=== PATIENT | female | born 1970 | race Caucasian/White ===

== ENCOUNTER 2018-06-10 09:39 | Emergency (ER) | payer SELFPAY ==
[2018-06-10 09:49] VITALS: BP 136/87
[2018-06-10] MEDS ORDERED: KETOROLAC TROMETHAMINE 60 MG/2 ML SDV IM ONE (10:01)
[2018-06-10] MEDS ORDERED: HYDROCODONE/ACETAMINOPHEN 5-325 MG TABLET PO ONE (10:01)
--- NOTE | 2018-06-10 10:03 | ER Document Report ---
ED Neck/Back Problem - General Chief Complaint: Neck Injury Stated Complaint: NECK/SHOULDER PAIN Time Seen by Provider: 06/10/18 09:51 Mode of Arrival: Ambulatory Information source: Patient, Relative Notes: Patient is a 47-year-old female comes emergency room complaining of 3-day onset of right-sided neck pain radiating down to the right upper arm and to the scapular area. Patient had a similar episode back in 2013 that resolved with treatment. Patient denies any known trauma. She has not been doing any strenuous activities. Again she believes that this occurred while she was sleeping. She has tried to manage this at home without success. She is taken ibuprofen. She has used ice. Nothing seems to help. She states that the pain is increased along her right scapular area and now runs down around her shoulder almost to her elbow. Patient denies any other medical problems however she does still smoke half pack cigarettes a day. Last menstrual period is current and she has had a tubal ligation. TRAVEL OUTSIDE OF THE [place] IN LAST 30 DAYS: No - HPI Patient complains to provider of: Pain, Neck, Upper back. No: Injury, Lower back Onset: Other - 3 days Where: Home, Other - Patient is really know when this occurred but she woke up with this. Onset: Gradual Timing: Constant, Still present, Worse Quality of pain: Cramping, Sharp, Stabbing Severity: Severe Pain Level: 4 Recent injury: No Associated symptoms: Numbness/tingling, Radiation to arm, Upper back pain Exacerbated by: Movement of neck Relieved by: Nothing Similar symptoms previously: Yes Recently seen / treated by doctor: No Notes: Same exact location of pain and discomfort the patient presented with in 2013. That lasted and resolved with treatment. - Related Data Allergies/Adverse Reactions: No Known Allergies Allergy (Verified 06/10/18 09:41) Past Medical History - General Information source: Patient Last Menstrual Period: Currently on. - Social History Smoking Status: Current Every Day Smoker Cigarette use (# per day): Yes Chew tobacco use (# tins/day): No Smoking Education Provided: No Frequency of alcohol use: Rare Drug Abuse: None Lives with: Family Family History: Reviewed & Not Pertinent Pulmonary Medical History: Reports: Hx Asthma, Hx Bronchitis, Hx Pneumonia Neurological Medical History: Reports: Hx Migraine Past Surgical History: Reports: Hx Tubal Ligation - Immunizations Immunizations up to date: Yes Hx Diphtheria, Pertussis, Tetanus Vaccination: Yes Review of Systems - Review of Systems Constitutional: No symptoms reported EENT: No symptoms reported Cardiovascular: No symptoms reported Respiratory: No symptoms reported Gastrointestinal: No symptoms reported Genitourinary: No symptoms reported Female Genitourinary: No symptoms reported Musculoskeletal: See HPI, Back pain, Muscle pain, Muscle stiffness, Neck pain. denies: Leg swelling, Ankle swelling Skin: No symptoms reported Hematologic/Lymphatic: No symptoms reported Neurological/Psychological: No symptoms reported -: Yes All other systems reviewed and negative Physical Exam - Vital signs Vitals: Temp Pulse Resp BP Pulse Ox 98.1 F 81 16 136/87 H 98 06/10/18 09:46 06/10/18 09:46 06/10/18 09:46 06/10/18 09:46 06/10/18 09:46 Interpretation: Hypertensive Notes: Patient is a well-nourished well-developed mildly obese 47-year-old female who appears in pain and discomfort. - General General appearance: Alert - HEENT Head: Normocephalic, Atraumatic Eyes: Normal - Respiratory Respiratory status: No respiratory distress Chest status: Nontender Breath sounds: Normal. No: Rales, Rhonchi, Stridor, Wheezing - Cardiovascular Rhythm: Regular Heart sounds: Normal auscultation Murmur: No - Back Back: Tender, Other - Examination patient's neck and upper back shows her to be very tense across the shoulders bilaterally but greater on the right than the left. Palpation along the scapular border finds it very tense spasm when palpated or pressure applied patient breaks into tears. This area also when compressed with a thumb shoots pain up the neck and down the arm. Very tender area. When pressures applied patient cries. Rotation of the shoulder is limited secondary to the pain and discomfort. Patient is also has a decreased range of motion of the head and neck with limited flexion and extension as well as rotation right and left is only about 10-15 degrees because of the tension. There is no nuchal rigidity however is no sign of meningeal signs. No: Vertebra tenderness, Scars, Scoliosis, Wounds - Extremities General upper extremity: Tender, Normal color, Normal temperature. No: Normal inspection, Nontender, Normal ROM, Normal strength Shoulder: Tender, Limited ROM. No: Abrasion, Deformity, Dislocation, Ecchymosis , Instability, Laceration Arm: Normal Elbow: Normal Forearm: Normal - Neurological Neuro grossly intact: Yes Cognition: Normal Orientation: AAOx4 [place] Coma Scale Eye Opening: Spontaneous [place] Coma Scale Verbal: Oriented [place] Coma Scale Motor: Obeys Commands Leyla Coma Scale Total: 15 Speech: Normal - Skin Skin Temperature: Warm Skin Moisture: Moist Course - Re-evaluation Re-evalutation: 06/10/18 10:29 I discussed possible causes of this with patient. Since there was no traumatic injury this is mostly muscle spasm so I do not believe any type of radiologic intervention is necessary at this time. Patient has physical findings which are most suggestive of a torticollis. The pain and discomfort is real in the trigger point has been found. We will treat her with aggressively with Valium for the muscle relaxer and hydrocodone for the pain and discomfort. I have discussed with her the ARC to partial pain medications and that she must not take them together. - Vital Signs Vital signs: Temp Pulse Resp BP Pulse Ox 98.1 F 81 16 136/87 H 98 06/10/18 09:46 06/10/18 09:46 06/10/18 09:46 06/10/18 09:46 06/10/18 09:46 Discharge - Discharge Clinical Impression: Torticollis, acute Condition: Stable Disposition: HOME, SELF-CARE Instructions: Torticollis ([facility]) Additional Instructions: I have shown you the actual spot where this spasm is going on. As we discussed and I have shown you pressure point is along the scapular border. As I have shown you have your apply pressure with a foam or 2 fingers and hold it for 30 seconds. Do not use an elbow or foot to try to break the spasm. Ice to the area alternating with moist heat. Light stretching 2-3 times a day. He may also add ibuprofen 800 mg 3 times a day with food you can get this over-the- counter. As I have discussed with you I am placing you on Valium which was 1 of the more powerful muscle relaxers milligrams prescribed 2 days worth at this point but hopefully have enough to break the spasm. Also given you a little hydrocodone for sleep at night do not take the 2 together. As we discussed also warm moist compresses alternating with ice packs 2-3 times a day will help. You may also start stretching lightly away from the spasm area. Should you have any problems or concerns return to ER for recheck. Do not drive or work at heights with this medication on board suggest not working on computer or overhead for the next 4-5 days. And again no lifting. Also no driving when taking the medications. Prescriptions: Diazepam [Valium 5 mg Tablet] 5 mg PO QIDP PRN #12 tablet PRN Reason: Hydrocodone/Acetaminophen [[place] 5-325 mg Tablet] 1 tab PO Q6 PRN #12 tablet PRN Reason: Forms: Elevated Blood Pressure
== END 2018-06-10 10:52 | disposition home or self-care (01) ==
LOC: ER 09:39
DX: M43.6 Torticollis (principal); F17.210 Nicotine dependence, cigarettes, uncomplicated; Z98.51 Tubal ligation status
CPT/HCPCS: 99283; 96372; J1885

== ENCOUNTER → 2020-02-19 | Outpatient (CLI) | payer OTHER ==
--- NOTE | 2020-02-19 11:24 | RADIOLOGY REPORT (SQ) ---
EXAM DESCRIPTION: KUB IMAGES COMPLETED DATE/TIME: 02/19/2020 10:57 am REASON FOR STUDY: GENERALIZED ABDOMINAL PAIN R10.84 GENERALIZED ABDOMINAL PAIN COMPARISON: None. NUMBER OF VIEWS: One view. TECHNIQUE: Supine radiographic image of the abdomen acquired. LIMITATIONS: None. FINDINGS: BOWEL GAS PATTERN: Normal bowel gas pattern. No dilated loops. CALCIFICATIONS: Several small calcified phleboliths in the pelvic region. A small calcification ove rlies the proximal -mid sacrum on the right, may represent a bone island, correlation with patient's history suggested. SOFT TISSUES: No gross mass or suggestion of organomegaly. HARDWARE: None in the abdomen. BONES: No acute fracture. No worrisome bone lesions. OTHER: No other significant finding. IMPRESSION: 1. NO RADIOGRAPHIC EVIDENCE FOR ACUTE ABDOMINAL DISEASE. 2. Additional findings as above. TECHNICAL DOCUMENTATION: JOB ID: [id number] 2010 [employer]- All Rights Reserved Reading location - IP/workstation name: [email or web address]
[2020-02-19 11:26] LABS: ABSOLUTE LYMPHOCYTES (AUTO) 1.8 10^3/uL (0.5-4.7); ABSOLUTE MONOCYTES (AUTO) 0.4 10^3/uL (0.1-1.4); ABSOLUTE NEUT (AUTO) 2.9 10^3/uL (1.7-8.2); BASOPHILS % (AUTO) 0.4 % (0-2); EOSINOPHILS % (AUTO) 0.3 % (0-6); HEMATOCRIT 42.9 % (36.0-47.0); HEMOGLOBIN 14.6 g/dL (12.0-15.5); LYMPHOCYTES % (AUTO) 35.3 % (13-45); MEAN CORPUSCULAR HEMOGLOBIN 30.9 pg (27.0-33.4); MEAN CORPUSCULAR HGB CONC 34.1 g/dL (32.0-36.0); MEAN CORPUSCULAR VOLUME 91 fl (80-97); MONOCYTES % (AUTO) 7.6 % (3-13); PLATELET COUNT 303 10^3/uL (150-450); RED BLOOD COUNT 4.74 10^6/uL (3.72-5.28); RED CELL DISTRIBUTION WIDTH 15.1 % (11.5-14.0); SEGMENTED NEUTROPHILS % (AUTO) 56.4 % (42-78); TOTAL CELLS COUNTED % (AUTO) 100 %; WHITE BLOOD COUNT 5.1 10^3/uL (4.0-10.5)
[2020-02-19 11:53] LABS: ALBUMIN 4.6 g/dL (3.5-5.0); ALKALINE PHOSPHATASE 102 U/L (38-126); ANION GAP 5 (5-19); ASPARTATE AMINO TRANSFERASE 23 U/L (14-36); BILIRUBIN,TOTAL 0.3 mg/dL (0.2-1.3); BLOOD UREA NITROGEN 12 mg/dL (7-20); C-REACTIVE PROTEIN 9.1 mg/L (<10.0); CALCIUM 9.6 mg/dL (8.4-10.2); CARBON DIOXIDE 29 mmol/L (22-30); CHLORIDE 102 mmol/L (98-107); GLUCOSE 96 mg/dL (75-110); POTASSIUM 4.9 mmol/L (3.6-5.0); TOTAL PROTEIN 7.6 g/dL (6.3-8.2)
[2020-02-19 12:24] LABS: ERYTHROCYTE SEDIMENTATION RATE 23 mm/hr (0-20)
== END ==
LOC: OD 10:34
PROVIDERS: ATTEND Physician Assistant
DX: R10.84 Generalized abdominal pain (principal)
CPT/HCPCS: 36415; 74018; 80053; 85025; 85652; 86140